=== PATIENT | female | born 1955 | race Caucasian/White ===

== ENCOUNTER 2017-01-14 07:16 | Day surgery (SDC) | payer BC ==
[2017-01-09 11:40] VITALS: BMI 28.0
[2017-01-14] MEDS ORDERED: PROPOFOL 20 ML ONE ×2 (07:21)
[2017-01-14 09:00] VITALS: BP 102/72; PULSE 61; TEMP 98
--- NOTE | 2017-01-16 16:15 | PATH ---
Surgical Pathology Report Patient Name: SENAIT WILLIS [facility]. Rec. #: [id number] /Age/Gender: 1955 (Age: 61) / F Account: [id number] Location: [facility]OS[facility] Taken: 01/14/2017 Received: 01/14/2017 Reported: 01/16/2017 Physicians: Christ Bowers M.D. Specimen(s) Received A: BX CECUM B: BX RIGHT COLON C: BX TRANSVERSE COLON D: BX LEFT COLON E: BX SIGMOID F: BX RECTO SIGMOID G: BX RECTUM Clinical History History of ulcerative colitis Ulcerative colitis, rule out dysplasia Final Diagnosis A. CECUM, BIOPSY: COLONIC MUCOSA WITH NO SIGNIFICANT PATHOLOGIC FINDINGS. NEGATIVE FOR COLITIS AND DYSPLASIA. B. RIGHT COLON, BIOPSY: COLONIC MUCOSA WITH NO SIGNIFICANT PATHOLOGIC FINDINGS. NEGATIVE FOR COLITIS AND DYSPLASIA. C. TRANSVERSE COLON, BIOPSY: COLONIC MUCOSA WITH NO SIGNIFICANT PATHOLOGIC FINDINGS. NEGATIVE FOR COLITIS AND DYSPLASIA. D. LEFT COLON, BIOPSY: COLONIC MUCOSA WITH NO SIGNIFICANT PATHOLOGIC FINDINGS. NEGATIVE FOR COLITIS AND DYSPLASIA. E. SIGMOID, BIOPSY: COLONIC MUCOSA WITH NO SIGNIFICANT PATHOLOGIC FINDINGS. NEGATIVE FOR COLITIS AND DYSPLASIA. F. RECTOSIGMOID, BIOPSY: COLONIC MUCOSA WITH NO SIGNIFICANT PATHOLOGIC FINDINGS. NEGATIVE FOR COLITIS AND DYSPLASIA. G. RECTUM: COLONIC/RECTAL MUCOSA WITH NO SIGNIFICANT PATHOLOGIC FINDINGS. NEGATIVE FOR A PROCTITIS AND DYSPLASIA. Electronically Signed Ladan Price M.D. Gross Description A. Received in formalin, labeled "cecum" are 3 acosta, irregular portions of soft tissue ranging from 0.3-0.4 cm. in greatest dimension. The specimens are submitted in toto in one cassette. B. Received in formalin, labeled "right colon" are 4 acosta, irregular portions of soft tissue ranging from 0.1-0.6 cm. in greatest dimension. The specimens are submitted in toto in one cassette. C. Received in formalin, labeled "transverse" are 4 acosta, irregular portions of soft tissue ranging from 0.1-0.5 cm. in greatest dimension. The specimens are submitted in toto in one cassette. D. Received in formalin, labeled "left colon" are 2 acosta, irregular portions of soft tissue measuring 0.4 and 0.5 cm. in greatest dimension. The specimens are submitted in toto in one cassette. E. Received in formalin, labeled "sigmoid" are 3 acosta, irregular portions of soft tissue ranging from 0.2-0.4 cm. in greatest dimension. The specimens are submitted in toto in one cassette. F. Received in formalin, labeled "rectosigmoid" are 3 acosta, irregular portions of soft tissue ranging from 0.2-0.3 cm. in greatest dimension. The specimens are submitted in toto in one cassette. G. Received in formalin, labeled "rectum" are 4 acosta, irregular portions of soft tissue ranging from 0.2-0.6 cm. in greatest dimension. The specimens are submitted in toto in one cassette. 01/15/2017 [facility]01/15/2017
== END 2017-01-14 09:05 | disposition home or self-care (01) ==
LOC: FASU-ENDO 07:16
PROVIDERS: ATTEND Internal Medicine Gastroenterology
PROC: 0DBN8ZX Excision of Sigmoid Colon, Via Natural or Artificial Opening Endoscopic, Diagnostic (ICD-10-PCS; 2017-01-14)
PROC: 0DBP8ZX Excision of Rectum, Via Natural or Artificial Opening Endoscopic, Diagnostic (ICD-10-PCS; 2017-01-14)
PROC: 0DBM8ZX Excision of Descending Colon, Via Natural or Artificial Opening Endoscopic, Diagnostic (ICD-10-PCS; 2017-01-14)
PROC: 0DBH8ZX Excision of Cecum, Via Natural or Artificial Opening Endoscopic, Diagnostic (ICD-10-PCS; 2017-01-14)
PROC: 0DBK8ZX Excision of Ascending Colon, Via Natural or Artificial Opening Endoscopic, Diagnostic (ICD-10-PCS; principal; 2017-01-14 08:04)
PROC: 0DBL8ZX Excision of Transverse Colon, Via Natural or Artificial Opening Endoscopic, Diagnostic (ICD-10-PCS; 2017-01-14 08:04)
DX: Z87.19 Personal history of other diseases of the digestive system (principal)
CPT/HCPCS: 88305-TC

== ENCOUNTER 2019-03-21 07:49 | Day surgery (SDC) | payer BC | END 2019-03-21 09:35 | disposition home or self-care (01) | LOC: FASU-ENDO 07:49 ==

== ENCOUNTER 2019-08-24 07:38 | Day surgery (SDC) | payer BC ==
[2019-08-18 12:46] VITALS: BMI 21.6
[2019-08-24] MEDS ORDERED: PROPOFOL 20 ML ONE ×2 (07:58)
[2019-08-24 08:05] VITALS: TEMP 98.4
[2019-08-24 09:56] VITALS: BP 105/65; PULSE 69
--- NOTE | 2019-08-26 14:13 | PATH ---
Surgical Pathology Report Patient Name: SENAIT WILLIS [facility]. Rec. #: [id number] /Age/Gender: 1955 (Age: 64) / F Account: [id number] [facility] Taken: 08/24/2019 Received: 08/24/2019 Reported: 08/26/2019 Physicians: Christ Bowers M.D. Specimen(s) Received A: CECUM B: RIGHT COLON C: TRANSVERSE COLON D: LEFT COLON E: SIGMOID COLON F: RECTOSIGMOID COLON G: RECTUM Clinical History History of ulcerative colitis Postoperative diagnosis: Diverticulosis, ulcerative colitis Final Diagnosis A. CECUM, BIOPSY: COLONIC MUCOSA SHOWING MILD CRYPT ARCHITECTURAL DISTORTION. NEGATIVE FOR COLITIS. B. RIGHT COLON, BIOPSY: COLONIC MUCOSA SHOWING SMALL BENIGN/REACTIVE LYMPHOID AGGREGATE AND MILD CRYPT ARCHITECTURAL DISTORTION. NEGATIVE FOR COLITIS. C. TRANSVERSE COLON, BIOPSY: COLONIC MUCOSA WITH NO PATHOLOGIC FINDINGS. NEGATIVE FOR COLITIS. D. LEFT COLON, BIOPSY: COLONIC MUCOSA WITH NO PATHOLOGIC FINDINGS. NEGATIVE FOR COLITIS. E. SIGMOID COLON, BIOPSY: COLONIC MUCOSA WITH NO PATHOLOGIC FINDINGS. NEGATIVE FOR COLITIS. F. RECTOSIGMOID COLON, BIOPSY: COLONIC/RECTAL MUCOSA SHOWING SMALL BENIGN/REACTIVE LYMPHOID AGGREGATE. NEGATIVE FOR COLITIS. G. RECTUM, BIOPSY: COLONIC/RECTAL MUCOSA SHOWING SMALL BENIGN/REACTIVE LYMPHOID AGGREGATE. NEGATIVE FOR COLITIS. Electronically Signed Ladan Price M.D. Gross Description A. Received in formalin, labeled "biopsy cecum" are 4 acosta, irregular portions of soft tissue averaging 0.3 cm. in greatest dimension. The specimens are submitted in toto in one cassette. B. Received in formalin, labeled "biopsy right colon" are 4 acosta, irregular portions of soft tissue ranging from 0.2-0.3 cm. in greatest dimension. The specimens are submitted in toto in one cassette. C. Received in formalin, labeled "biopsy transverse colon" are 4 acosta, irregular portions of soft tissue ranging from 0.1-0.3 cm. in greatest dimension. The specimens are submitted in toto in one cassette. D. Received in formalin, labeled "biopsy left colon" are 4 acosta, irregular portions of soft tissue ranging from 0.1-0.3 cm. in greatest dimension. The specimens are submitted in toto in one cassette. E. Received in formalin, labeled "biopsy sigmoid colon" are 4 acosta, irregular portions of soft tissue ranging from 0.2-0.8 cm. in greatest dimension. The specimens are submitted in toto in one cassette. F. Received in formalin, labeled "biopsy rectosigmoid colon" are 4 acosta, irregular portions of soft tissue ranging from 0.3-0.4 cm. in greatest dimension. The specimens are submitted in toto in one cassette. G. Received in formalin, labeled "biopsy rectum" are 5 acosta, irregular portions of soft tissue ranging from 0.3-0.5 cm. in greatest dimension. The specimens are submitted in toto in one cassette. 08/25/2019 [facility]08/25/2019
== END 2019-08-24 09:55 | disposition home or self-care (01) ==
LOC: FASU-ENDO 07:38
PROVIDERS: ATTEND Internal Medicine Gastroenterology
PROC: 0DBL8ZX Excision of Transverse Colon, Via Natural or Artificial Opening Endoscopic, Diagnostic (ICD-10-PCS; 2019-08-24)
PROC: 0DBN8ZX Excision of Sigmoid Colon, Via Natural or Artificial Opening Endoscopic, Diagnostic (ICD-10-PCS; 2019-08-24)
PROC: 0DBP8ZX Excision of Rectum, Via Natural or Artificial Opening Endoscopic, Diagnostic (ICD-10-PCS; 2019-08-24)
PROC: 0DBM8ZX Excision of Descending Colon, Via Natural or Artificial Opening Endoscopic, Diagnostic (ICD-10-PCS; 2019-08-24)
PROC: 0DBH8ZX Excision of Cecum, Via Natural or Artificial Opening Endoscopic, Diagnostic (ICD-10-PCS; 2019-08-24)
PROC: 0DBK8ZX Excision of Ascending Colon, Via Natural or Artificial Opening Endoscopic, Diagnostic (ICD-10-PCS; principal; 2019-08-24 08:51)
DX: Z87.19 Personal history of other diseases of the digestive system (principal); K57.30 Diverticulosis of large intestine without perforation or abscess without bleeding; K63.89 Other specified diseases of intestine
CPT/HCPCS: 88305-TC

== ENCOUNTER 2022-03-17 08:01 | Day surgery (SDC) | payer OTHER, BC ==
[2022-03-13 16:57] VITALS: BMI 25.4
[2022-03-17 09:57] VITALS: TEMP 98.2
[2022-03-17 10:10] VITALS: BP 112/57; PULSE 71
== END 2022-03-17 10:10 | disposition home or self-care (01) ==
LOC: FASU-ENDO 08:01
PROVIDERS: ATTEND Internal Medicine Gastroenterology
PROC: 0DBL8ZX Excision of Transverse Colon, Via Natural or Artificial Opening Endoscopic, Diagnostic (ICD-10-PCS; 2022-03-17)
PROC: 0DBN8ZX Excision of Sigmoid Colon, Via Natural or Artificial Opening Endoscopic, Diagnostic (ICD-10-PCS; 2022-03-17)
PROC: 0DBP8ZX Excision of Rectum, Via Natural or Artificial Opening Endoscopic, Diagnostic (ICD-10-PCS; 2022-03-17)
PROC: 0DBM8ZX Excision of Descending Colon, Via Natural or Artificial Opening Endoscopic, Diagnostic (ICD-10-PCS; 2022-03-17)
PROC: 0DBH8ZX Excision of Cecum, Via Natural or Artificial Opening Endoscopic, Diagnostic (ICD-10-PCS; 2022-03-17)
PROC: 0DBK8ZX Excision of Ascending Colon, Via Natural or Artificial Opening Endoscopic, Diagnostic (ICD-10-PCS; principal; 2022-03-17 08:51)
DX: Z12.11 Encounter for screening for malignant neoplasm of colon (principal); D12.2 Benign neoplasm of ascending colon; D12.3 Benign neoplasm of transverse colon; K63.89 Other specified diseases of intestine; Z87.19 Personal history of other diseases of the digestive system
CPT/HCPCS: 88305-TC

== ENCOUNTER 2024-04-11 07:45 | Day surgery (SDC) | payer OTHER, BC ==
[2024-04-04 11:49] VITALS: BMI 22.4
[2024-04-11 08:25] VITALS: RESP 18
[2024-04-11 09:49] VITALS: TEMP 97.3
[2024-04-11 10:16] VITALS: BP 101/53; PULSE 50
== END 2024-04-11 10:19 | disposition home or self-care (01) ==
LOC: FASU-ENDO 07:45
PROVIDERS: ATTEND Internal Medicine Gastroenterology
PROC: 0DBL8ZX Excision of Transverse Colon, Via Natural or Artificial Opening Endoscopic, Diagnostic (ICD-10-PCS; 2024-04-11)
PROC: 0DBN8ZX Excision of Sigmoid Colon, Via Natural or Artificial Opening Endoscopic, Diagnostic (ICD-10-PCS; 2024-04-11)
PROC: 0DBP8ZX Excision of Rectum, Via Natural or Artificial Opening Endoscopic, Diagnostic (ICD-10-PCS; 2024-04-11)
PROC: 0DBM8ZX Excision of Descending Colon, Via Natural or Artificial Opening Endoscopic, Diagnostic (ICD-10-PCS; 2024-04-11)
PROC: 0DBH8ZX Excision of Cecum, Via Natural or Artificial Opening Endoscopic, Diagnostic (ICD-10-PCS; 2024-04-11)
PROC: 0DBK8ZX Excision of Ascending Colon, Via Natural or Artificial Opening Endoscopic, Diagnostic (ICD-10-PCS; principal; 2024-04-11 08:57)
DX: Z12.11 Encounter for screening for malignant neoplasm of colon (principal); K57.30 Diverticulosis of large intestine without perforation or abscess without bleeding; K63.89 Other specified diseases of intestine; Z87.19 Personal history of other diseases of the digestive system
CPT/HCPCS: 88305-TC